=== PATIENT | male | born 1965 | race Caucasian/White ===

== ENCOUNTER 2022-11-13 19:25 | Inpatient (IN) | payer OTHER ==
[~2022-11-13] VITALS: Ht 172.7 cm; Wt 33.1 kg
[2022-11-13 19:27] VITALS: BP 104/67
--- NOTE | 2022-11-13 19:27 | NUR ---
PT BROUGHT TO BED 10 VIA LEAH
--- NOTE | 2022-11-13 19:45 | NUR ---
Dr. Lerner by bedside to evaluate pt
[2022-11-13 19:59] LABS: BASOPHILS # (AUTO) 0.1 K/uL (0.00-0.22); BASOPHILS % (AUTO) 1.8 % (0.0-2.0); EOSINOPHILS # (AUTO) 0.7 K/uL (0-0.4); EOSINOPHILS % (AUTO) 14.9 % (0.0-4.0); HEMATOCRIT 34.6 % (36-52); HEMOGLOBIN 11.9 g/dL (12.0-18.0); LYMPHOCYTES # (AUTO) 0.7 K/uL (2.0-11.5); LYMPHOCYTES % (AUTO) 14.9 % (20.5-51.1); MEAN CORPUSCULAR HEMOGLOBIN 34 pg (27-31); MEAN CORPUSCULAR HGB CONC 34 g/dL (33-37); MONOCYTES # (AUTO) 0.8 K/uL (0.8-1.0); MONOCYTES % (AUTO) 17.2 % (1.7-9.3); NEUTROPHILS # (AUTO) 2.4 K/uL (1.8-7.7); NEUTROPHILS % (AUTO) 51.2 % (42.2-75.2); PLATELET COUNT (AUTO) 92 K/uL (140-450); RED BLOOD CELL COUNT(AUTO) 3.53 MIL/uL (4.20-6.10); RED CELL DISTRIBUTION WIDTH 15.6 % (11.6-13.7); WHITE BLOOD COUNT (AUTO) 4.7 K/uL (4.8-10.8)
[2022-11-13] MEDS ORDERED: NACL 0.9% 1,000 ML IV ONE (20:00)
[2022-11-13 20:15] LABS: ANION GAP 13.1 (8-16); CARBON DIOXIDE 23.2 mmol/L (21-32); CHLORIDE 104 mmol/L (98-107); CREATININE 1.8 mg/dL (0.6-1.3); GFR ARICAN-AMERICAN 50 mL/min (>90); GLUCOSE 128 mg/dL (74-106); POTASSIUM 5.3 mmol/L (3.5-5.1); SODIUM SERUM 135 mmol/L (136-145); UREA NITROGEN, BLOOD 44 mg/dL (7-18)
--- NOTE | 2022-11-13 20:20 | NUR ---
URINE COLLECTED AND HANDED TO LAB
--- NOTE | 2022-11-13 20:20 | NUR ---
PATIENT SWAB COLLECTED AND HANDED TO LAB.
--- NOTE | 2022-11-13 20:23 | NUR ---
PATIENT CHANGED AND REPOSITIONED. HOB ELEVATED. PLACED IN NEW LINEN AND BRIEF. BED LOW AND LOCKED. FELIPA SIDE RAILS FOR SAFETY. ALL NEEDS MET.
[2022-11-13 20:25] LABS: ALBUMIN 2.7 g/dL (3.4-5.0); ASPARTATE AMINOTRANSFERASE 48 U/L (15-37); TOTAL BILIRUBIN 1.2 mg/dL (0.0-1.0)
--- NOTE | 2022-11-13 20:26 | NUR ---
SON [facility] SWEET CALLED REQUESTING UPDATE [phone]
[2022-11-13 20:31] LABS: ACETAMINOPHEN < 0.5 ug/ml (10-30); SALICYLATE < 2.8 mg/dL (2.8-20.0)
--- NOTE | 2022-11-13 20:38 | NUR ---
SPOKE TO PRINCESS CASIANO. GAVE AN UPDATE ON PATIENTS STATUS.
[2022-11-13 20:58] LABS: BILIRUBIN,URINE NEGATIVE (NEGATIVE); BLOOD, URINE 1+ (NEGATIVE); COLOR,URINE ORANGE (YELLOW); LEUKOCYTE ESTERASE ,URINE NEGATIVE (NEGATIVE); NITRITE, URINE NEGATIVE (NEGATIVE); PH,URINE 5.5 (5.0-9.0); UGLUCOSE TRACE (NEGATIVE)
--- NOTE | 2022-11-13 21:00 | NUR ---
RETURNED FROM CT
[2022-11-13 21:22] LABS: APPEARANCE,URINE CLEAR (CLEAR)
[2022-11-13 21:24] LABS: BARBITURATE, URINE NEGATIVE ng/ml (NEG <=200); BENZODIAZEPINE, URINE NEGATIVE ng/mL (NEG <=200); CANNABINOID, URINE NEGATIVE ng/mL (NEG <=50); COCAINE, URINE NEGATIVE ng/mL (NEG <=300); OPIATE, URINE NEGATIVE ng/mL (NEG <=2000); PHENCYCLIDINE SCREEN,URINE NEGATIVE ng/mL (NEG <=25)
[2022-11-13 21:33] LABS: WBC,URINE NONE SEEN /HPF (0-5)
[2022-11-13] MEDS ORDERED: LACTULOSE 20 GM/30 ML UDC PO ONE (23:00)
[2022-11-14] VITALS (7 sets, daily range): BP systolic 102–183; BP diastolic 60–91
--- NOTE | 2022-11-14 00:25 | NUR ---
# 14 FR NG tube placed to right nare. Placement checked by auscultation of instilled air into stomach and aspiration of gastric contents. Tubing taped in place to prevent dislodging. Patient tolerated well.
[2022-11-14] MEDS ORDERED: LACTULOSE 20 GM/30 ML UDC ONE (00:26)
--- NOTE | 2022-11-14 00:29 | NUR ---
RAD AT BEDSIDE
--- NOTE | 2022-11-14 00:30 | NUR ---
ERMD AT BEDSIDE
--- NOTE | 2022-11-14 00:30 | NUR ---
PATIENT CHANGED AND REPOSITIONED. HOB ELEVATED. PLACED IN NEW LINEN AND BRIEF. BED LOW AND LOCKED. EFLIPA SIDE RAILS FOR SAFETY. ALL NEEDS MET.
--- NOTE | 2022-11-14 00:32 | NUR ---
SPOKE TO GIO, UPDATED ON PATIENTS STATUS AND ADMITTING DX.
--- NOTE | 2022-11-14 00:37 | NUR ---
SKIN INTACT PER BODY CHECK
--- NOTE | 2022-11-14 00:37 | NUR ---
MED REC COMPLETE
--- NOTE | 2022-11-14 02:10 | NUR ---
PATIENT CHANGED AND REPOSITIONED. HOB ELEVATED. PLACED IN NEW LINEN AND BRIEF. BED LOW AND LOCKED. FELIPA SIDE RAILS FOR SAFETY. ALL NEEDS MET.
--- NOTE | 2022-11-14 03:20 | NUR ---
Dr. Jaramillo contact regarding noted decline in GCS score. VSS. No respiratory distress. Addendum: 11/14/22 at 0453 by [email or web address] Awaiting response.
--- NOTE | 2022-11-14 04:40 | NUR ---
Contacted Dr. Navarro regarding GCS score 7. VSS. No respiratory distress. Addendum: 11/14/22 at 0453 by [email or web address] Waiting for response
[2022-11-14 05:04] LABS: CARBON DIOXIDE 20.8 mmol/L (21-32); CREATININE 1.6 mg/dL (0.6-1.3)
--- NOTE | 2022-11-14 05:13 | NUR ---
REPOSITIONED. HOB ELEVATED. PLACED IN NEW LINEN AND BRIEF. BED LOW AND LOCKED. FELIPA SIDE RAILS FOR SAFETY. ALL NEEDS MET.
[2022-11-14 05:33] LABS: POTASSIUM 4.8 mmol/L (3.5-5.1)
[2022-11-14 06:31] LABS: BASOPHILS % (AUTO) 0.3 % (0.0-2.0); EOSINOPHILS # (AUTO) 0.6 K/uL (0-0.4); EOSINOPHILS % (AUTO) 6.3 % (0.0-4.0); HEMATOCRIT 36.6 % (36-52); HEMOGLOBIN 12.5 g/dL (12.0-18.0); LYMPHOCYTES # (AUTO) 0.7 K/uL (2.0-11.5); LYMPHOCYTES % (AUTO) 7.5 % (20.5-51.1); MEAN CORPUSCULAR HEMOGLOBIN 33 pg (27-31); MEAN CORPUSCULAR HGB CONC 34 g/dL (33-37); MEAN CORPUSCULAR VOLUME 98.2 fL (80-94); MONOCYTES # (AUTO) 1.3 K/uL (0.8-1.0); MONOCYTES % (AUTO) 14.8 % (1.7-9.3); NEUTROPHILS # (AUTO) 6.4 K/uL (1.8-7.7); PLATELET COUNT (AUTO) 95 K/uL (140-450); RED BLOOD CELL COUNT(AUTO) 3.73 MIL/uL (4.20-6.10); RED CELL DISTRIBUTION WIDTH 15.8 % (11.6-13.7)
[2022-11-14 06:35] LABS: NEUTROPHILS % (AUTO) 71.1 % (42.2-75.2)
--- NOTE | 2022-11-14 06:45 | NUR ---
REPOSITIONED. HOB ELEVATED. PLACED IN NEW LINEN AND BRIEF. BED LOW AND LOCKED. FELIPA SIDE RAILS FOR SAFETY. ALL NEEDS MET.
--- NOTE | 2022-11-14 07:18 | NUR ---
Report given to Darrian JAMISON
--- NOTE | 2022-11-14 07:39 | NUR ---
PT LAYING IN BED ALTERED. V/S STABLE. NO ACUTE DISTRESS NOTED. PT TAKEN TO ICU, REPORT TO NURSE
--- NOTE | 2022-11-14 07:40 | NUR ---
PT ARRIVED TO ICU. A/OX0, MOANS AND GROANS ONLY. PERRL, NO TRACKING. WITHDRAWALS TO PAIN. DOES NOT FOLLOW COMMANDS. ROOM AIR, LUNGS CLEAR. NSR ON MONITOR. 22G IV TO R HAND, SALINE LOCK. NGT TO R NARE, CLAMPED. BOWEL SOUNDS HYPOACTIVE. INCONTINENT, DIAPER IN PLACE. MODERATE WEAKNESS THROUGHOUT, TOTAL CARE. STANDARD PRECAUTION. BED LOCKED AND IN LOWEST POSITION.
--- NOTE | 2022-11-14 08:15 | NUR ---
CAM CASIANO CALLED. WAS UPDATED ON CURRENT STATUS AND POC. Addendum: 11/14/22 at 1307 by Samreen Granger RN CAM WOOD
[2022-11-14] MEDS: METOPROLOL 25 MG TAB PO SCH ×2 (08:29→20:14)
--- NOTE | 2022-11-14 08:50 | NUR ---
INSERTED 16FR ALCALA CATHETER WITH STERILE TECHNIQUE. PT TOLERATED WELL.
[2022-11-14] MEDS ORDERED: LACTULOSE 20 GM/30 ML UDC PO SCH (09:00)
[2022-11-14] MEDS ORDERED: LACTULOSE 20 GM/30 ML UDC NG SCH (09:00)
[2022-11-14] MEDS ORDERED: NACL 0.9% 500 ML IV SCH (11:10)
[2022-11-14] MEDS ORDERED: HYDROcodone/APAP 7.5/325 MG 1 TAB PO PRN (11:15)
[2022-11-14] MEDS ORDERED: ACETAMINOPHEN 325 MG TAB PO PRN (11:15)
[2022-11-14] MEDS ORDERED: ONDANSETRON 4 MG/2 ML VIAL IVP PRN (11:15)
[2022-11-14] MEDS ORDERED: POTASSIUM CHLORIDE 10 MEQ TABER PO PRN (11:15)
[2022-11-14] MEDS: LACTULOSE 20 GM/30 ML UDC NG SCH ×4 (11:25→16:32)
--- NOTE | 2022-11-14 11:30 | NUR ---
CALLED AND SPOKE TO SON, CAM WOOD TO RECONCILE HOME MEDS. HE READ THE PT'S MEDICATION LABELS AND REPORTED THEM. HE STATED HE ENSURES THE PT TAKES HIS MEDICATIONS DAILY. UPDATED ON POC.
[2022-11-14] MEDS ORDERED: LACT10SO86 PO (11:37)
[2022-11-14] MEDS ORDERED: PROP20TA29 PO (11:37)
[2022-11-14] MEDS ORDERED: SYN.05 PO (11:37)
[2022-11-14] MEDS ORDERED: SPIR50TA PO (11:37)
[2022-11-14] MEDS ORDERED: RIFA550T PO (11:37)
[2022-11-14] MEDS ORDERED: FURO-572 PO (11:37)
[2022-11-14] MEDS ORDERED: PANT40EC PO (11:37)
[2022-11-14] MEDS ORDERED: FERR325E14 PO (11:37)
[2022-11-14] MEDS: NACL 0.9% 1,000 ML IV SCH (11:51)
[2022-11-14] MEDS: PANTOPRAZOLE 40 MG INJ VIAL IVP SCH (11:51)
[2022-11-14 12:36] LABS: PROTHROMBIN TIME 11.9 secs (10.8-13.4)
[2022-11-14 12:51] LABS: CHOL/HDL RATIO 2.1 (1-4.5); FREE T4 (FREE THYROXINE) 1.16 ng/dL (0.76-1.46); MAGNESIUM 1.6 mg/dL (1.8-2.4); PHOSPHORUS 4.5 mg/dL (2.5-4.9); THYROID STIMULATING HORMONE 2.93 uIU/mL (0.34-3.74)
[2022-11-14] MEDS: MAG SULF 2000 MG/WATER PREMIX 50 ML IV PRN (12:55)
--- NOTE | 2022-11-14 16:45 | NUR ---
PT TRANSPORTED FROM ICU TO MST UNIT VIA ICU BED BY SHAYY AND SHAHEEN FRAGA. RECEIVED REPORT FROM SHAHEEN FRAGA FOR CONTINUITY OF CARE. PT AWAKE. 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 RESPIRATIONS EVEN AND UNLABORED ON RA. NO DISTRESS NOTED. WITH NG-TUBE IN PLACE, READY FOR USE PER RN. ALCALA CATHETER IN PLACE, INTACT, DRAINING WELL. IV SITE ON RIGHT HAND G22, INFUSING IVF. PT ORIENTED TO ROOM, UNIT AND ROUTINE. V/S TAKEN. CALL LIGHT WITHIN REACH. SAFETY PRECAUTIONS IN PLACE.
--- NOTE | 2022-11-14 16:45 | NUR ---
PT BELONGINGS PLACED AT BEDSIDE.
--- NOTE | 2022-11-14 16:50 | NUR ---
ENDORSED REPORT TO [facility] FOR CONTINUITY OF CARE. BELONGINGS WITH PT. PT MORE RESPONSIVE TO STIMULI. OPENS EYES TO VOICE. MOANS AND GROANS ONLY.
--- NOTE | 2022-11-14 19:02 | NUR ---
GAVE BEDSIDE REPORT TO SHAHEEN COOK FOR CONTINUITY OF CARE. ALL NEEDS MET THROUGHOUT SHIFT. PT IS IN STABLE CONDITION.
--- NOTE | 2022-11-14 19:05 | NUR ---
RECEIVED PT ON BED, OPEN EYES TO TOUCH, NONVERBAL, NOT ABLE TO FOLLOW COMMANDS, NGT TO RT NARES CLAMPED, MAINTAINED ON NPO AT THIS TIME, IVF INFUSING WELL, ALCALA CATHETER IN PLACE DRAINING YELLOW OUTPUT, FALL PRECAUTION IN PLACE, FREQUENT ROUNDS WILL BE MADE, CALL LIGHT WITHIN REACH.
[2022-11-14] MEDS: DOCUSATE SODIUM 100 MG GELCAP PO SCH (20:15)
[2022-11-14] MEDS ORDERED: LORazepam 2 MG/ML VIAL IVP PRN (22:10)
--- NOTE | 2022-11-14 22:25 | NUR ---
PT OFF TELE, WENT TO PTS ROOM, PT SEEN TRYING TO GET OOB, CONFUSED KEEP ON SAYING "CAM LEVY", REORIENT PY Addendum: 11/14/22 at 2235 by Satinder Block RN PT TO NAME AND PLACE, STILL CONFUSED, ATTEMPT TO PULL OUT NGT, ASK IF HE IS IN PAIN STATED "SE", MEDICATED PRN WITH NORCO VIA NGT, REPOSITIONED, BUT PT STILL RESTLESS, TRYING TO GET OOB, PAGED DR YEBOAH WITH NEW ORDER FOR ATIVAN, BP-162/75, HR-67, MEDICATED WITH ATIVAN 1 MG IVP, RN STAYED AT BEDSIDE FOR CLOSE MONITORING.
[2022-11-15] VITALS: BP 134/62
--- NOTE | 2022-11-15 | NUR ---
PT SLEEPING, MOANS TO TOUCH, VITAL SIGNS STABLE, FLACC-0, IVF INFUSING WELL, CONTINUE TO MONITOR CLOSELY.
[2022-11-15 04:00] VITALS: BP 156/70
[2022-11-15] MEDS: NACL 0.9% 1,000 ML IV SCH ×2 (04:47→20:35)
--- NOTE | 2022-11-15 05:30 | NUR ---
PT WITH SMALL SOFT BM, PERINEAL CARE DONE, ALCALA CATHETER OUTPUT OF 1100ML, IVF INFUSING WELL, PT WENT BACK TO SLEEP, MONITORED CLOSELY.
--- NOTE | 2022-11-15 07:25 | NUR ---
PT SLEEPING, EASILY AROUSABLE, NO DISTRESS NOTED, BEDSIDE REPORT GIVEN TO RN ROSAS FOR CONTINUITY OF CARE.
[2022-11-15 08:00] VITALS: BP 164/67
[2022-11-15] MEDS ORDERED: PANTOPRAZOLE 40 MG INJ VIAL IVP SCH (09:00)
--- NOTE | 2022-11-15 09:19 | NUR ---
PATIENT HAS BEEN SCREENED AND CATEGORIZED HIGH NUTRITION RISK. PATIENT WILL BE SEEN WITHIN 1-2 DAYS OF ADMISSION. 11/13/22-11/15/[address] REFERRAL RECEIVED FOR TY 12 OR LOWER FROM
[2022-11-15] MEDS ORDERED: MAG SULF 2000 MG/WATER PREMIX 50 ML IV SCH (09:30)
[2022-11-15] MEDS: METOPROLOL 25 MG TAB PO SCH ×2 (09:51→20:21)
[2022-11-15] MEDS: PANTOPRAZOLE 40 MG INJ VIAL IVP SCH (09:51)
[2022-11-15] MEDS: DOCUSATE SODIUM 100 MG GELCAP PO SCH ×2 (09:51→20:21)
[2022-11-15] MEDS: LACTULOSE 20 GM/30 ML UDC NG SCH ×3 (09:51→17:00)
[2022-11-15 12:00] VITALS: BP 157/76
[2022-11-15 16:00] VITALS: BP 132/67
--- NOTE | 2022-11-15 17:57 | NUR ---
11/15/22 RD INITIAL ASSESSMENT COMPLETED PLEASE REFER TO NUTRITION ASSESSMENT UNDER CARE ACTIVITY FOR ESTIMATED NUTRITIONAL NEEDS. 1.WHEN/IF MEDICALLY APPROPRIATE, RECOMMEND HEPATIC DIET TOLERATED -IF PT UNABLE TO TOLERATE PO INTAKE, AND WHEN/IF MEDICALLY APPROPRIATE TO INITIATE TUBE FEEDING, RECOMMEND JEVITY 1.2 LUZ MARIA WITH A GOAL RATE OF 50ML/HR WITH PROSOURCE 1X/DAY. -FWF 160 ML Q4H OR PER MD -START AT 10 ML/HR AND INCREASE BY 10 ML Q4H UNTIL GOAL RATE IS REACHED PT TOLERATES. WITH PROSOURCE 1X/DAY (60 KCAL, 15 G PRO),THIS WILL PROVIDE 1200 ML VOLUME, 1500 KCAL, AND 81.6 GRAMS OF PROTEIN, MEETING 75% OF ESTIMATED KCAL NEEDS AND >100% OF ESTIMATED PROTEIN NEEDS; ADEQUATE 2. MONITOR NPO STATUS 3. RD TO FOLLOW-UP 3-5 DAYS, MODERATE RISK MELCHOR REYNA[address] RD
--- NOTE | 2022-11-15 19:19 | NUR ---
ENDORSE PATIENT TO PM SHIFT NURSE WHILE MORE AWAKED PATIENT IS REST IN BED, PIV R.HAND 22G INFUSING NS AT 60ML/HR. ALCALA DRAINING, NG-TUBE PRESENT.
--- NOTE | 2022-11-15 19:20 | NUR ---
RECEIVED REPORT FROM DAY SHIFT NURSE ROSAS FOR CONTINUITY OF CARE. PT AWAKE, WITH DAUGHTER AT BEDSIDE. PT RESPONSIVE TO NAME, SPEAKING TO DAUGHTER IN [place]. 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 RESPIRATIONS EVEN AND UNLABORED ON RA. NO DISTRESS NOTED. NG-TUBE IN PLACE. ALCALA CATHETER DRAINING WELL. IV SITE ON RIGHT HAND 22G, INFUSING IVF. CALL LIGHT WITHIN REACH. SAFETY PRECAUTIONS IN PLACE.
[2022-11-15 20:00] VITALS: BP 156/71
--- NOTE | 2022-11-15 20:00 | NUR ---
Patient's Plan of Care was discussed and reviewed with DOT COMPLIANCE SPECIALIST: ANN DE SOUZA
--- NOTE | 2022-11-15 20:21 | NUR ---
ADMINISTERED DUE MEDS VIA NG-TUBE. PLACEMENT AND RESIDUAL CHECKED. NG-TUBE CLAMPED, REMAINED IN PLACE. PT TOLERATED WELL.
[2022-11-16] VITALS: BP 151/71
--- NOTE | 2022-11-16 01:16 | NUR ---
PT SLEEPING. NO DISTRESS NOTED. SAFETY PRECAUTIONS IN PLACE.
[2022-11-16 04:00] VITALS: BP 150/68
--- NOTE | 2022-11-16 05:38 | NUR ---
PERINEAL CARE DONE WITH HAM SAWYER. REPOSITIONED PT. NO DISTRESS NOTED. NO COMPLAINTS OF PAIN. NG-TUBE INTACT.
--- NOTE | 2022-11-16 06:39 | NUR ---
IV LINE ACCIDENTALLY PULLED OUT. NEW IV LINE INSERTED. IV LINE NOW ON LEFT HAND 22G. IVF INFUSING.
--- NOTE | 2022-11-16 07:04 | NUR ---
GAVE BEDSIDE REPORT TO DAY SHIFT NURSE ROSAS FOR CONTINUITY OF CARE. ALL NEEDS MET THROUGHOUT SHIFT. PT IS STABLE.
[2022-11-16 07:15] LABS: BASOPHILS # (AUTO) 0.1 K/uL (0.00-0.22); BASOPHILS % (AUTO) 1.2 % (0.0-2.0); EOSINOPHILS # (AUTO) 0.8 K/uL (0-0.4); EOSINOPHILS % (AUTO) 12.6 % (0.0-4.0); HEMATOCRIT 33.1 % (36-52); HEMOGLOBIN 11.3 g/dL (12.0-18.0); LYMPHOCYTES # (AUTO) 0.7 K/uL (2.0-11.5); LYMPHOCYTES % (AUTO) 10.5 % (20.5-51.1); MEAN CORPUSCULAR HEMOGLOBIN 34 pg (27-31); MEAN CORPUSCULAR HGB CONC 34 g/dL (33-37); MEAN CORPUSCULAR VOLUME 98.6 fL (80-94); MONOCYTES # (AUTO) 1.4 K/uL (0.8-1.0); MONOCYTES % (AUTO) 21.4 % (1.7-9.3); NEUTROPHILS # (AUTO) 3.6 K/uL (1.8-7.7); NEUTROPHILS % (AUTO) 54.3 % (42.2-75.2); PLATELET COUNT (AUTO) 72 K/uL (140-450); RED BLOOD CELL COUNT(AUTO) 3.36 MIL/uL (4.20-6.10); RED CELL DISTRIBUTION WIDTH 15.6 % (11.6-13.7); WHITE BLOOD COUNT (AUTO) 6.6 K/uL (4.8-10.8)
[2022-11-16 07:30] LABS: ANION GAP 15.4 (8-16); CARBON DIOXIDE 20.2 mmol/L (21-32); CREATININE 1.2 mg/dL (0.6-1.3); POTASSIUM 4.6 mmol/L (3.5-5.1)
[2022-11-16 08:00] VITALS: BP 153/72
[2022-11-16] MEDS: LACTULOSE 20 GM/30 ML UDC NG SCH ×3 (10:06→17:00)
[2022-11-16] MEDS: PANTOPRAZOLE 40 MG INJ VIAL IVP SCH (10:07)
[2022-11-16] MEDS: METOPROLOL 25 MG TAB PO SCH (10:11)
[2022-11-16] MEDS: DOCUSATE SODIUM 100 MG GELCAP PO SCH ×2 (10:12→21:27)
[2022-11-16 12:00] VITALS: BP 150/75
[2022-11-16] MEDS: SPIRONOLACTONE 50 MG TAB PO SCH ×2 (13:10→17:00)
[2022-11-16] MEDS: NACL 0.9% 1,000 ML IV SCH (13:20)
[2022-11-16 16:00] VITALS: BP 148/70
--- NOTE | 2022-11-16 19:03 | NUR ---
ENDORSE PATIENT TO PM SHIFT NURSE WHILE MORE AWAKED PATIENT IS SITTING EDGE OF BED ENJOY HIS DINNER, PIV L.HAND 22G INFUSING NS AT 60ML/HR. ALCALA DRAINING, NG-TUBE REMOVED
--- NOTE | 2022-11-16 19:04 | NUR ---
RECEIVED REPORT FROM DAY SHIFT NURSE ROSAS FOR CONTINUITY OF CARE. PT AWAKE IN BED, JUST HAD DINNER, TOLERATED DINNER WELL. WITH SON AT BEDSIDE. NG TUBE DC TODAY, NOW ON MECHANICAL SOFT GROUND THIN LIQUID DIET. WITH PROGRAM SERVICES ASSISTANT. RESPIRATIONS EVEN AND UNLABORED ON RA. NO DISTRESS NOTED. NO C/O OF PAIN. ALCALA CATHETER DRAINING YELLOW URINE. SKIN INTACT, WARM AND DRY TO TOUCH. CALL LIGHT WITHIN REACH. SAFETY PRECAUTIONS IN PLACE.
[2022-11-16 20:00] VITALS: BP 126/67
--- NOTE | 2022-11-16 20:00 | NUR ---
Patient's Plan of Care was discussed and reviewed with SPINE SURGEON: ANN DE SOUZA
--- NOTE | 2022-11-16 21:34 | NUR ---
ADMINISTERED DUE MED. PT TOLERATED WELL.
[2022-11-17] VITALS: BP 132/69
--- NOTE | 2022-11-17 01:57 | NUR ---
PT SLEEPING WITH VISIBLE CHEST RISE AND FALL. NO ACUTE DISTRESS NOTED. SAFETY PRECAUTIONS IN PLACE.
[2022-11-17] MEDS: MAG SULF 2000 MG/WATER PREMIX 50 ML IV PRN (02:15)
[2022-11-17 04:00] VITALS: BP 132/67
[2022-11-17] MEDS: NACL 0.9% 1,000 ML IV SCH (04:51)
[2022-11-17 05:53] LABS: BASOPHILS # (AUTO) 0.1 K/uL (0.00-0.22); BASOPHILS % (AUTO) 1.4 % (0.0-2.0); EOSINOPHILS # (AUTO) 0.8 K/uL (0-0.4); EOSINOPHILS % (AUTO) 14.4 % (0.0-4.0); HEMOGLOBIN 10.5 g/dL (12.0-18.0); LYMPHOCYTES # (AUTO) 0.7 K/uL (2.0-11.5); LYMPHOCYTES % (AUTO) 11.4 % (20.5-51.1); MEAN CORPUSCULAR HEMOGLOBIN 34 pg (27-31); MEAN CORPUSCULAR HGB CONC 35 g/dL (33-37); MEAN CORPUSCULAR VOLUME 98.3 fL (80-94); MONOCYTES # (AUTO) 1.2 K/uL (0.8-1.0); MONOCYTES % (AUTO) 20.5 % (1.7-9.3); NEUTROPHILS # (AUTO) 3.1 K/uL (1.8-7.7); NEUTROPHILS % (AUTO) 52.3 % (42.2-75.2); PLATELET COUNT (AUTO) 69 K/uL (140-450); RED BLOOD CELL COUNT(AUTO) 3.05 MIL/uL (4.20-6.10); RED CELL DISTRIBUTION WIDTH 15.3 % (11.6-13.7); WHITE BLOOD COUNT (AUTO) 5.8 K/uL (4.8-10.8)
--- NOTE | 2022-11-17 06:04 | NUR ---
ADMINISTERED DUE MEDS. PT TOLERATED WELL. PT NO C/O OF PAIN. NO DISTRESS NOTED.
[2022-11-17 06:22] LABS: CARBON DIOXIDE 20.3 mmol/L (21-32); CREATININE 1.1 mg/dL (0.6-1.3); POTASSIUM 4.3 mmol/L (3.5-5.1)
[2022-11-17] MEDS ORDERED: LEVOTHYROXINE 0.05 MG TAB PO SCH (06:30)
--- NOTE | 2022-11-17 07:28 | NUR ---
GAVE BEDSIDE REPORT TO RN ADZE FOR CONTINUITY OF CARE. ALL NEEDS MET THROUGHOUT SHIFT. PT IS STABLE.
[2022-11-17 08:00] VITALS: BP 128/68
[2022-11-17] MEDS ORDERED: PROPRANOLOL 20 MG TAB PO SCH (09:00)
[2022-11-17] MEDS ORDERED: FERROUS SULFATE 325 MG TABEC PO SCH (09:00)
[2022-11-17] MEDS ORDERED: FUROSEMIDE 20 MG TAB PO SCH (09:00)
[2022-11-17] MEDS: SPIRONOLACTONE 50 MG TAB PO SCH ×2 (09:30→13:32)
[2022-11-17] MEDS: LACTULOSE 20 GM/30 ML UDC NG SCH ×2 (09:30→13:32)
[2022-11-17] MEDS: PANTOPRAZOLE 40 MG INJ VIAL IVP SCH (09:30)
[2022-11-17] MEDS: DOCUSATE SODIUM 100 MG GELCAP PO SCH (09:31)
[2022-11-17] MEDS ORDERED: LACT10SO40 PO (10:40)
[2022-11-17 14:06] VITALS: BP 132/67
--- NOTE | 2022-11-17 15:45 | NUR ---
PATIENT DISCHARGED HOME. INSTRUCTION GIVEN. ACCOMPANIED BY . PERSONAL BELONGINGS SENT HOME WITH PATIENT.
== END 2022-11-17 15:25 | disposition home or self-care (01) | DRG 441 ==
LOC: MED 19:25 → MTU 23:13 → MIC 23:31 → MTU 11-14 17:07
PROC: 0DH67UZ Insertion of Feeding Device into Stomach, Via Natural or Artificial Opening (ICD-10-PCS; principal; 2022-11-14)
PROC: 3E0G76Z Introduction of Nutritional Substance into Upper GI, Via Natural or Artificial Opening (ICD-10-PCS; 2022-11-14)
PROC: 0T9B70Z Drainage of Bladder with Drainage Device, Via Natural or Artificial Opening (ICD-10-PCS; 2022-11-14)
DX: K76.82 Hepatic encephalopathy (principal); N17.0 Acute kidney failure with tubular necrosis; E44.0 Moderate protein-calorie malnutrition; Z68.1 Body mass index [BMI] 19.9 or less, adult; K74.60 Unspecified cirrhosis of liver; F10.10 Alcohol abuse, uncomplicated; Y90.9 Presence of alcohol in blood, level not specified; E83.42 Hypomagnesemia; Z20.822 Contact with and (suspected) exposure to COVID-19; E80.6 Other disorders of bilirubin metabolism; D69.6 Thrombocytopenia, unspecified; Z91.199 Patient's noncompliance with other medical treatment and regimen due to unspecified reason; I10 Essential (primary) hypertension
CPT/HCPCS: 36415; 70450; 71045; 80048; 80053; 80305; 81001; 82140; 82150; 82550; 83036; 83605; 83690; 83735; 83880; 84100; 84439; 84443; 84484; 85025; 85610; 85730; 87040; 87081; 92526; 93005; 96360; 99291; C9113; G0480; G0482; J2060; J3475